=== PATIENT | male | born 1975 | race Caucasian/White ===

== ENCOUNTER 2016-07-17 14:31 | Emergency (ER) ==
[2016-07-17 14:52] VITALS: BP 154/98
[2016-07-17] MEDS ORDERED: ZOFRAN ODT PO ONE (15:35)
[2016-07-17] MEDS ORDERED: NORCO-5 PO ONE (15:35)
--- NOTE | 2016-07-17 15:39 | PROVIDER DOCUMENTATION ---
HPI-Musculoskeletal Pain/Inj - GENERAL Chief Complaint: Extremity Injury Stated Complaint: LFT FOOT INJURY Time Seen by Provider: 07/17/16 14:54 Source: patient - HX OF PRESENT ILLNESS-MUSKULOSKELTAL Nature of Presenting Problem: This pt presents today c complaints of pain after a heavy travel trailer slipped off his truck wench and landed on his left foot and ankle. He reports swelling and pain. He is ambulating. No obvious deformity noted. No loss of motor function or sensation. No other issues or complaints. Quality of Pain: reports: aching Severity in ED: moderate Onset/Duration: 4-6 hours ago Timing: still present, constant Modifying Factors: improves with: movement, palpation Any recent injury?: Yes Similar Symptoms Previously?: No Recently seen or treated by another doctor?: No Review of Systems - Adult - REVIEW OF SYSTEMS - ADULT Constitutional: reports: no symptoms reported. denies: chills, fever Eyes: reports: no symptoms reported. denies: discharge, dry eyes Ears, Nose, Mouth & Throat: reports: no symptoms reported. denies: ear discharge, ear pain Cardiovascular: reports: no symptoms reported. denies: chest pain, edema Respiratory: reports: no symptoms reported. denies: chronic cough, cough Gastrointestinal: reports: no symptoms reported. denies: abdominal pain, hematemesis Genitourinary: reports: no symptoms reported. denies: dysuria, discharge Musculoskeletal: reports: bone pain, joint pain, joint swelling. denies: frequent leg cramps, muscle aches Integumentary: reports: no symptoms reported. denies: hives, hair loss Neurological: reports: no symptoms reported. denies: ataxia, dizziness/vertigo Psychiatric: reports: no symptoms reported. denies: anxiety, anti-depressant use Endocrine: reports: no symptoms reported Hematologic/Lymphatic: reports: no symptoms reported Allergic/Immunologic: reports: no symptoms reported All Other Systems: Reviewed and Negative Past History - Adult - PAST MEDICAL HISTORY-ADULT Review of Records: reports: Old Records Reviewed, Nursing Assessment Review, Medications Reviewed, Social history reviewed & non-contributory. Major Childhood Illnesses: reports: denies history Cardiovascular: reports: denies history Respiratory: reports: denies history Gastrointestinal: reports: denies history Obstetrical/Gynecological: reports: denies history Genitourinary: reports: denies history Musculoskeletal: reports: denies history Neurological: reports: denies history Endocrine/Immune: reports: denies history Other Conditions: reports: denies history - FAMILY HISTORY Family History: reviewed, not pertinent Physical Exam-Injury Related - Physical Exam-Injury Related Initial Vital Signs Reviewed: Yes General Appearance: appears well, alert, no apparent distress Eyes: PERRL/EOMI, pink conjunctivae Head, Ears, Nose, Mouth & Throat: normocephalic/atraumatic, moist mucous membranes, normal ENT inspection Neck: non-tender, full range of motion, supple, normal inspection Respiratory: chest non-tender, lungs clear, normal breath sounds Cardiovascular: normal peripheral pulses, regular rate, rhythm Peripheral Pulses: dorsalis-pedis (R): 2+, dorsalis-pedis (L): 2+ Abdominal Exam: normal bowel sounds, non tender, soft Back Exam: normal inspection, no CVA tenderness, no vertebral tenderness Extremity: normal range of motion, swelling, tenderness. negative: deformity, erythema, pulse deficit, pedal edema Integumentary: normal color, warm/dry, blanching. negative: ecchymosis, abrasion, contusion(s) Neurologic: grossly normal, no motor/sensory deficits. negative: facial droop, focal weakness, motor weakness, sensory deficit Psych/Mental Status: normal mood/affect, normal thought content, normal thought process, oriented x 3 - Glascow Coma Score Best Eye Response (Ruby): (4) open spontaneously Best Verbal Response (Ruby): (5) oriented Best Motor Response (Ruby): (6) obeys commands Ruby Total: 15 Progress - PLAN OF CARE/RESULTS Progress/Plan/Lab Results: Orders Category Date Time Status Boot, Mid-Calf Walking DIRECTED Care 07/17/16 15:35 Active ANKLE COMPLETE LEFT [RAD] Stat Exams 07/17/16 14:57 Taken FOOT COMPLETE LEFT [RAD] Stat Exams 07/17/16 14:57 Taken Hydrocodone/APAP 5 mg/325 mg [[place]-5] Med 07/17/16 15:35 Discontinued 1 each PO NOW ONE Ondansetron Odt [Zofran Odt] Med 07/17/16 15:35 Discontinued 4 mg PO NOW ONE Vital Signs Temp Pulse Resp BP Pulse Ox 07/17/16 14:50 98.0 F 90 18 154/98 100 No Known Allergies Allergy (Verified 07/17/16 15:12) Aspirin/Acetaminophen [Goody's Body Pain Powder Pkt] 1 each PO PRN PRN 01/03/14 - XRAY 1 XRAY: Left XRAY Study: Ankle, Foot XRAY Interpretation: nad Departure - Departure Time of Disposition Order: 15:38 DIAGNOSIS: Crushing injury of foot and ankle, left Qualifiers: Encounter type: initial encounter Qualified Code(s): S97.82XA - Crushing injury of left foot, initial encounter; S97.02XA - Crushing injury of left ankle , initial encounter Disposition: HOME 01 Certified Medical Emergency: Urgent Condition: Good Additional Instructions: Take medication as prescribed. Rest, ice and elevate foot. Follow up with an orthopedist as needed. ED Follow Up Instructions: You have been treated by a care provider in the Emergency Department. These instructions are being provided to you so you can have an understanding of how to care for yourself upon discharge. Upon discharge from the Emergency Department, you are responsible for making arrangements for follow-up care by a physician of your choice. Take all prescribed medications as directed. Return to the Emergency Department immediately for any new or worsening symptoms. You may call the Physician Referral phone number at [phone] to obtain a list of Physicians who are taking new patients. Prescriptions: Cyclobenzaprine [Flexeril] 10 mg PO TID #20 tablet Meloxicam [Mobic] 7.5 mg PO DAILY PRN PRN #15 tablet PRN Reason: Pain Referrals: None,PCP [Primary Care Provider] - Peter Sommers MD [STAFF PHYSICIAN] - Attestation - Physician/ EDGARDO Attestation Patient care was provided by Advanced Practice Provider:: Yes Advanced Practice Provider:: [facility] Advanced [facility] Provider documentation review:: The Mid-level provider documentation, treatment plan and medical decision making was reviewed by the physician who agrees with all treatment and medical decision making by the P.
--- NOTE | 2016-07-17 17:47 | Diag Imaging Result Document ---
PROCEDURE NAME: ANKLE COMPLETE LEFT - 07/17/2016 LEFT ANKLE, 3 VIEWS: FINDINGS: No fracture. No dislocation. IMPRESSION: No acute bony injury.
--- NOTE | 2016-07-17 18:01 | Diag Imaging Result Document ---
PROCEDURE NAME: FOOT COMPLETE LEFT - 07/17/2016 LEFT FOOT, 3 VIEWS: No fracture. No dislocation. IMPRESSION: No acute bony injury.
== END 2016-07-17 16:00 | disposition home or self-care (01) ==
LOC: ED 14:31
DX: S97.82XA Crushing injury of left foot, initial encounter (principal); S97.02XA Crushing injury of left ankle, initial encounter; M79.672 Pain in left foot; M25.572 Pain in left ankle and joints of left foot; M25.475 Effusion, left foot; M25.472 Effusion, left ankle; W20.8XXA Other cause of strike by thrown, projected or falling object, initial encounter
CPT/HCPCS: 99283